=== PATIENT | female | born 2000 | race African-American/Black ===

== ENCOUNTER 2024-07-13 21:42 | Emergency (ER) | payer MEDICAID, OTHER ==
[~2024-07-13] VITALS: Ht 157.5 cm; Wt 122.5 kg
[2024-07-13 21:45] VITALS: PULSE 82; RESP 17; TEMP 98.5
[2024-07-13] MEDS ORDERED: THERAFLU NIGHT1 EAC5 PO (22:44)
[2024-07-13] MEDS ORDERED: IBUPROFEN600 MG PO (22:44)
[2024-07-13] MEDS ORDERED: TAMIFLU75 MG PO (22:44)
[2024-07-13] MEDS ORDERED: IBUPROFEN 200 MG TAB PO ONE (22:45)
[2024-07-13] MEDS: CEFTRIAXONE 1 GM VIAL IM ONE (22:55)
[2024-07-13] MEDS: ACETAMINOPHEN 325 MG TAB PO ONE (22:55)
[2024-07-13] MEDS: IBUPROFEN 600 MG TAB PO ONE (22:59)
[2024-07-13 23:04] VITALS: BP 141/86; PULSE 82; RESP 17; TEMP 98.5; O2SAT 99
== END 2024-07-13 23:06 | disposition home or self-care (01) ==
LOC: FSED 21:51
DX: R05.9 Cough, unspecified (principal); J10.1 Influenza due to other identified influenza virus with other respiratory manifestations; R51.9 Headache, unspecified; E66.9 Obesity, unspecified; Z11.52 Encounter for screening for COVID-19
CPT/HCPCS: 0223U; 83518 ×2; 87400; 99283; J0696

== ENCOUNTER 2024-11-02 10:59 | Emergency (ER) | payer MEDICAID, OTHER ==
[~2024-11-02] VITALS: Ht 162.6 cm; Wt 129.7 kg
[~2024-11-02 10:59] MED LIST: IBUPROFEN600 MG PO; TAMIFLU75 MG PO; THERAFLU NIGHT1 EAC5 PO
[2024-11-02 11:41] VITALS: PULSE 114; RESP 17; TEMP 100.2; O2SAT 98
[2024-11-02] MEDS: SODIUM CHLORIDE 0.9% 1000ML 1,000 ML IV STA (12:41)
[2024-11-02] MEDS: ACETAMINOPHEN 325 MG TAB PO ONE (12:42)
[2024-11-02 12:44] LABS: BASOPHILS % 0.4 % (0.0-1.0); EOSINOPHILS % 1.4 % (0.0-6.0); LYMPHOCYTES % 6.5 % (18.0-39.1); MONOCYTES % 5.5 % (4.4-11.3); NEUTROPHILS % 86.0 % (38.7-80.0); RED CELL DISTRIBUTION WIDTH 12.5 % (11.7-14.4)
[2024-11-02 12:58] LABS: EPITHELIAL CELLS,URINE MANY /LPF; LEUKOCYTE ESTERASE ,URINE NEGATIVE (NEGATIVE); PROTEIN,URINE DIPSTICK NEGATIVE (NEGATIVE); URINE UROBILINOGEN 0.2 mg/dL (0.2 - 1); WBC,URINE (MAN) 0-5 /HPF (0-5)
[2024-11-02 13:11] LABS: CORONAVIRUS COVID-19 AG NEGATIVE (NEGATIVE); STREPTOCOCCUS GRP A ANTIGEN NEGATIVE (NEGATIVE)
[2024-11-02 13:24] LABS: INR 0.99
[2024-11-02] MEDS: KETOROLAC TROMETHAMINE 30 MG/ML VIAL IV STA (13:31)
[2024-11-02 13:36] LABS: EST GLOMERULAR FILTRATION RATE 111.0 ML/MIN (>=60)
== END 2024-11-02 14:18 | disposition home or self-care (01) ==
LOC: ER 11:27
DX: R50.9 Fever, unspecified (principal); B34.9 Viral infection, unspecified; N39.0 Urinary tract infection, site not specified; Z11.52 Encounter for screening for COVID-19
CPT/HCPCS: 36415; 71045; 80053; 81001; 83518; 83735; 84702; 85025; 85610; 85730; 87040; 87070; 87086; 87428; 99284; J1885; J7030